=== PATIENT | male | born 1970 | race Hispanic/Latino ===

== ENCOUNTER 2019-01-07 14:52 | Emergency (ER) | payer MEDICAID, OTHER ==
[2019-01-07] MEDS ORDERED: PERCOCET 5/325 PO ONE (15:14)
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
[2019-01-07] MEDS ORDERED: TORADOL IM ONE (17:28)
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
--- NOTE | 2019-01-07 17:52 | XRay Report ---
PROCEDURE: XR KNEE 3V RT TECHNIQUE: AP, oblique, and lateral vertebral views of the right knee HISTORY: right knee pain COMPARISONS: None . FINDINGS: There is an acute comminuted fracture involving the lateral tibial plateau. One of the vert ical components of this fracture line extends beneath the tibial spines to the diametaphyseal level o f the proximal tibial shaft. The lateral medial tibial plateaus are horizontal without evidence for d epression of the lateral fracture There is spurring and calcification along the medial collateral ligament, particularly along the femo ral component. No dislocation is seen. The soft tissues demonstrate a small suprapatellar joint effusion. Mild narro wing of the patellofemoral joint is related to osteoarthritis. Bony mineralization is normal. IMPRESSION: 1. Acute comminuted nondepressed lateral tibial plateau fracture 2. Small joint effusion This document is electronically signed by Deloris Borrero MD., January 07 2019 05:50:36 PM ET
[2019-01-07 20:18] VITALS: BP 114/72
== END 2019-01-07 20:41 | disposition home or self-care (01) ==
LOC: ED 14:52
DX: S82.141A Displaced bicondylar fracture of right tibia, initial encounter for closed fracture (principal); F31.9 Bipolar disorder, unspecified; J44.9 Chronic obstructive pulmonary disease, unspecified; F17.200 Nicotine dependence, unspecified, uncomplicated; V89.2XXA Person injured in unspecified motor-vehicle accident, traffic, initial encounter; Y93.89 Activity, other specified; Y92.410 Unspecified street and highway as the place of occurrence of the external cause; Y99.8 Other external cause status
CPT/HCPCS: 29505; 73130; 73562; 96372; 99284; J1885

== ENCOUNTER 2020-04-27 22:24 | Emergency (ER) | payer MEDICAID ==
[~2020-04-27 22:24] MED LIST: EPINEPHrine 1 MG/10 ML SYRINGE ONE
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
== END 2020-04-28 01:00 ==
LOC: ED 22:24
DX: I46.9 Cardiac arrest, cause unspecified (principal); R56.9 Unspecified convulsions; F31.9 Bipolar disorder, unspecified; J44.9 Chronic obstructive pulmonary disease, unspecified; F17.200 Nicotine dependence, unspecified, uncomplicated; Z79.899 Other long term (current) drug therapy
CPT/HCPCS: 92950; 99291; J0171